=== PATIENT | female | born 1940 | race Caucasian/White ===

== ENCOUNTER → 2018-07-13 | Outpatient (CLI) | payer OTHER ==
[~2018-07-13] MED LIST: ANASTROZOLE1 MG PO; ASCORBIC ACID100 MG PO; ASPIRIN E.C.81 M1 PO; ASPIRIN81 M2 PO; Advair HFA 230/21 IH; Arimidex PO; B-121000 MC2 PO; CALCIUM 600 +1 EA16 PO; CEFTIN500 MG PO; CINNAMON500 MG PO; COQ-10100 MG PO; Calan SR,Covera HS,I PO; Calcium Carbonate,Ca PO; DAILY VALUE1 EACH PO; DELTASONE20 MG PO; FLOVENT 22120 INHALA IH; LEVOXYL75 MCG PO; LOVASTATIN20 MG PO; Levothroid,Synthroid PO; MAGNESIUM200 MG PO; MAGNESIUM250 MG PO; MOVE FREE1 CAPSULE PO; Magnesium PO; Mevacor PO; Motrin PO; OMEGA-3 FISH O1 EAC9 PO; Omega III EPA + DHA PO; PROAIR HFA8.5 GM IH; Proventil,Ventolin H IH; Robitussin AC,Tussi- PO; SPIRIVA1 INHALATI IH; Singulair PO; Symbicort 160-4.5 mc IH; VERAPAMIL HCL240 MG PO; VITAMIN B122500 MCG PO; Xopenex HFA Inhaler IH; ZESTRIL,PRINIVI10 M1 PO; ZITHROMAX250 MG PO; [UNRECOGNIZED DRUG - OTHER] PO
== END | disposition home or self-care (01) ==
LOC: OPR 08:09 → EDSTATUS 09:00
DX: C78.6 Secondary malignant neoplasm of retroperitoneum and peritoneum (principal); C50.919 Malignant neoplasm of unspecified site of unspecified female breast; I10 Essential (primary) hypertension; E03.9 Hypothyroidism, unspecified; J45.40 Moderate persistent asthma, uncomplicated; M81.0 Age-related osteoporosis without current pathological fracture; N83.9 Noninflammatory disorder of ovary, fallopian tube and broad ligament, unspecified; Z88.0 Allergy status to penicillin; Z88.2 Allergy status to sulfonamides; J90 Pleural effusion, not elsewhere classified; Z79.82 Long term (current) use of aspirin
CPT/HCPCS: 77012; 88305; 88341 TC; 88342 TC; J2405; J3010